=== PATIENT | male | born 1985 | race African-American/Black ===

== ENCOUNTER 2024-08-24 16:29 | Inpatient (IN) | payer OTHER ==
[2024-08-24 15:30] VITALS: BMI 28.7
[2024-08-24] MEDS ORDERED: BENZONATATE 200 MG CAPSULE PO PRN (17:16)
[2024-08-24] MEDS ORDERED: NALOXONE (NARCAN) HCL 4 MG/0.1 ML SPRAY NS PRN (17:16)
[2024-08-24] MEDS ORDERED: IBUPROFEN 600 MG TABLET (FP) PO PRN (17:16)
[2024-08-24] MEDS ORDERED: BENZOCAINE/MENTHOL (CHLORASEPTIC ) LOZENGE MM PRN (17:16)
[2024-08-24] MEDS ORDERED: ACETAMINOPHEN 325 MG TABLET (FP) PO PRN (17:16)
[2024-08-24] MEDS ORDERED: MAG HYDROX/AL HYDROX/SIMETH 30 ML UNIT-DOSE CUP PO PRN (17:16)
[2024-08-24] MEDS ORDERED: MAGNESIUM HYDROX 2400MG/30ML ORAL SUSPENSION 30 ML CUP PO PRN (17:16)
[2024-08-24] MEDS ORDERED: LOPERAMIDE HCL 2 MG CAPSULE PO PRN (17:16)
[2024-08-24] MEDS ORDERED: IBUPROFEN 400 MG TABLET (FP) PO PRN (17:16)
[2024-08-24] MEDS ORDERED: guaiFENesin 600 MG TABLET.ER (FP) PO PRN (17:16)
[2024-08-24] MEDS ORDERED: POLYETHYLENE GLYCOL (HEALTHYLAX) 3350 17 GM PACKET PO PRN (17:16)
[2024-08-24] MEDS: MELATONIN 5 MG TABLETS PO SCH (23:07)
[2024-08-24] MEDS: THIAMINE 100 MG TABLET PO SCH (23:07)
[2024-08-25 09:08] LABS: MCHC 31.6 g/dl (32.3-36.5); MEAN CELL VOLUME 105.8 fl (79.0-92.2); MEAN PLT VOLUME 9.4 fl (9.4-12.4); PLATELET COUNT 518 x10^3/uL (163-337); RDW 13.9 % (12.0-15.6)
[2024-08-25 09:22] LABS: CHLORIDE 102 mmol/L (98-107); POTASSIUM 4.8 mmol/L (3.5-5.1); SODIUM 138 mmol/L (136-145)
[2024-08-25 09:23] LABS: URINE APPEARANCE CLEAR; URINE BILIRUBIN NEGATIVE (NEGATIVE); URINE COLOR YELLOW; URINE GLUCOSE (UA) 3+ (NEGATIVE); URINE KETONE NEGATIVE (NEGATIVE); URINE LEUK ESTERASE NEGATIVE (NEGATIVE); URINE NITRITE NEGATIVE (NEGATIVE); URINE PROTEIN NEGATIVE (NEGATIVE); URINE UROBILINOGEN 0.2 mg/dL (0.2-1.0)
[2024-08-25 09:40] LABS: CALCIUM 9.9 mg/dL (8.5-10.1)
[2024-08-25 09:41] LABS: ALBUMIN 3.7 g/dl (3.4-5.0); ANION GAP 9 mmol/L (4-13); BLOOD UREA NITROGEN 11.1 mg/dL (7-18); CO2 27 mmol/L (21-32); GLUCOSE,RANDOM 322 mg/dL (74-106)
[2024-08-25 09:43] LABS: BILIRUBIN,TOTAL 0.4 mg/dL (0.2-1); SGOT/AST 22 U/L (15-37); SGPT/ALT 51 U/L (13-61); TOT PROT 7.1 g/dl (6.4-8.2)
[2024-08-25 09:44] LABS: ALK PHOS 79 U/L (45-117); CREATININE 0.9 mg/dL (0.55-1.3)
[2024-08-25 09:53] LABS: SYPHILIS W/ RPR CONF NON-REACTIVE (NONREACTIVE)
[2024-08-25] MEDS: PRENATAL VITAMINS W/ FOLIC ACID TABLET (FP) PO SCH (09:58)
[2024-08-25 10:22] LABS: HCV DIAGNOSTIC IN-HOUSE W/RFLX NON-REACTIVE (NONREACTIVE)
[2024-08-25] MEDS: PANTOPRAZOLE 40 MG TABLET PO SCH (10:54)
[2024-08-25] MEDS: cloNIDine HCL 0.1 MG TABLET PO SCH (10:54)
[2024-08-25 13:00] VITALS: BP 149/97; PULSE 82; RESP 16; TEMP 97.8
[2024-08-25] MEDS: hydrOXYzine PAMOATE 25 MG CAPSULE (FP) PO PRN (13:16)
== END 2024-08-25 13:12 | disposition left against medical advice (07) | DRG 770 ==
LOC: YASAS 16:29 → Y3NR 17:35
PROVIDERS: ADMIT Allergy & Immunology; ATTEND Allergy & Immunology
PROC: HZ42ZZZ Group Counseling for Substance Abuse Treatment, Cognitive-Behavioral (ICD-10-PCS; principal; 2024-08-24)
DX: F10.20 Alcohol dependence, uncomplicated (principal); F17.210 Nicotine dependence, cigarettes, uncomplicated; F90.9 Attention-deficit hyperactivity disorder, unspecified type; I10 Essential (primary) hypertension; K21.9 Gastro-esophageal reflux disease without esophagitis
CPT/HCPCS: 36415; 80053; 80305; 80307; 81003; 85027; 86780; 86803; 87811